=== PATIENT | female | born 1985 | race Caucasian/White ===

== ENCOUNTER 2018-11-05 07:42 | Emergency (ER) | payer BC ==
[2018-11-05 08:01] VITALS: BP 108/77; PULSE 102; TEMP 99.6; BMI 19.8
--- NOTE | 2018-11-05 08:39 | PDOC ---
History of Present Illness - General Chief Complaint: Cold Symptoms Stated Complaint: UPPER RESPIRATORY COMPLAINT Time Seen by Provider: 11/05/18 07:52 History Source: Patient Exam Limitations: No Limitations - History of Present Illness Initial Comments: 11/05/18 08:33 Healthy 33-year-old female with history of mild hypothyroidism presents with 3- 4 days of URI symptoms of cough and chest congestion. Symptoms began with body aches 4 days ago, over the last 2-3 days developed nasal congestion and rhinorrhea with cough and chest congestion productive of green sputum. Patient was seen at urgent care yesterday and prescribed cough suppressants without relief, has been taking Tylenol and Motrin for sore throat. Had chills last night and persisting cough so she presents for evaluation. No recent travel or known sick contacts, nonsmoker, not influenza vaccinated. No history of recurring infections or pneumonia. Past History - Past Medical History Allergies/Adverse Reactions: Allergies Allergy/AdvReac Type Severity Reaction Status Date / Time cephalexin [From Keflex] AdvReac Intermediate Nausea Verified 11/05/18 07:49 Home Medications: Ambulatory Orders Hydrocodone Bit/Homatrop Me-Br [Hydrocodone-Homatropine Syrup] 5 ml PO BID PRN # 30 ml MDD 10mL 11/05/18 Omeprazole 20 mg PO DAILY 11/05/18 Quetiapine Fumarate [Seroquel -] 50 mg PO HS 11/05/18 COPD: No GI Disorders: Yes (REFLUX) Psychiatric Problems: Yes (ANXIETY/SLEEP DISORDER) Thyroid Disease: Yes - Immunization History Immunization Up to Date: Yes - Suicide/Smoking/Psychosocial Hx Smoking Status: No Smoking History: Never smoked Number of Cigarettes Smoked Daily: 0 Information on smoking cessation initiated: No Hx Alcohol Use: No Drug/Substance Use Hx: No Substance Use Type: Alcohol Review of Systems - Review of Systems Constitutional: Yes: Chills. No: Fever, Night Sweats HEENTM: Yes: Nose Congestion, Throat Pain. No: Ear Pain Respiratory: Yes: Cough Cardiac (ROS): No: Syncope ABD/GI: No: Diarrhea, Vomiting : No: Dysuria Integumentary: No: Rash Neurological: No: Headache *Physical Exam - Vital Signs Last Vital Signs Temp Pulse Resp BP Pulse Ox 99.6 F 102 H 18 108/77 100 11/05/18 07:43 11/05/18 07:43 11/05/18 07:43 11/05/18 07:43 11/05/18 07:43 - Physical Exam Comments: 11/05/18 08:36 O2 sat 100% on room air, no tachypnea, temp 99.6 with heart rate 105 (patient took Tylenol just prior to coming to the hospital) GENERAL: The patient is awake, alert, and fully oriented, in no acute distress other than occasional cough and nasal congestion. HEAD: Normal with no signs of trauma. EYES: PERRL, EOMI, sclera anicteric, conjunctiva clear. ENT: oropharynx clear without exudates or erythema or swelling. Moist mucous membranes. NECK: Normal range of motion, supple with sub-centimeter anterior cervical lymphadenopathy, no JVD or masses. LUNGS: Breath sounds equal, clear to auscultation bilaterally. No wheeze/ crackles. HEART: Regular rate and rhythm, normal S1 and S2 without murmur or rub. EXTREMITIES: Normal range of motion, no edema. 2+ distal pulses. NEUROLOGICAL: Cranial nerves II through XII grossly intact. Normal speech, normal gait. PSYCH: Normal mood, normal affect. SKIN: Warm, Dry, no rashes or lesions noted. Moderate Sedation - Procedure Monitoring Vital Signs: Procedure Monitoring Vital Signs Temperature 99.6 F 11/05/18 07:43 Pulse Rate 102 H 11/05/18 07:43 Respiratory Rate 18 11/05/18 07:43 Blood Pressure 108/77 11/05/18 07:43 O2 Sat by Pulse Oximetry (%) 100 11/05/18 07:43 Medical Decision Making - Medical Decision Making 11/05/18 08:38 Healthy 33-year-old female with no underlying lung disease presents with URI symptoms for 3-4 days and subjective fever/chills. Likely viral etiology but rule out pneumonia given progression of sputum and chest complaints, otherwise no respiratory distress. Not a high risk patient for influenza, no wheezing to suggest reactive airway. Low suspicion for strep given no exudate and presence of cough. Check chest x-ray Optimize symptom management with better cough suppressant Reassurance 11/05/18 09:10 cxr without infiltrate. received toradol for throat pain. no suggestion of pna or strep pharyngitis, counseled regarding illness course for viral URI, sxs control, and return precautions. agrees with plan, understands return criteria. *DC/Admit/Observation/Transfer Diagnosis at time of Disposition: Upper respiratory infection Qualifiers: URI type: unspecified URI Qualified Code(s): J06.9 - Acute upper respiratory infection, unspecified - Discharge Dispostion Disposition: HOME Condition at time of disposition: Stable - Prescriptions Prescriptions: Hydrocodone Bit/Homatrop Me-Br [Hydrocodone-Homatropine Syrup] 5 ml PO BID PRN # 30 ml MDD 10mL PRN Reason: Cough - Referrals Referrals: Riri Melton MD [[facility]] - - Patient Instructions Printed Discharge Instructions: DI for Viral Upper Respiratory Infection -- Adult, DI for Viral Pharyngitis Additional Instructions: Activity as tolerated. Stay hydrated. Your symptoms are most likely due to a viral infection that is causing nasal congestion, sore throat, and cough. A chest x-ray shows no evidence of pneumonia , the exam does not suggest strep throat. Tylenol 1000 mg every 8 hours and/or ibuprofen 600 mg every 6-8 hours as needed for pain. Take Mucinex D as a decongestant, take Hycodan as prescribed as a cough suppressant. Continue your medications as previously prescribed by your physician. You should follow up with your primary doctor as soon as possible regarding today's emergency department visit. If you don't have a primary doctor, consider calling Dr. Barry for an appointment. Return to the emergency department for any new or concerning symptoms, particularly persistent fevers or chills, worsening chest pain or difficulty breathing, throat swelling or difficulty swallowing. - Post Discharge Activity Forms/Work/School Notes: Back to Work
[2018-11-05] MEDS ORDERED: KETOROLAC TROMETHAMINE 60 MG/2 ML VIAL IM ONE (09:02)
[2018-11-05] MEDS ORDERED: KETOROLAC TROMETHAMINE 60 MG/2 ML VIAL ONE (09:03)
== END 2018-11-05 09:23 | disposition home or self-care (01) ==
LOC: FER 07:42
PROC: 3E0233Z Introduction of Anti-inflammatory into Muscle, Percutaneous Approach (ICD-10-PCS; principal; 2018-11-05)
DX: J06.9 Acute upper respiratory infection, unspecified (principal); K21.9 Gastro-esophageal reflux disease without esophagitis; F41.9 Anxiety disorder, unspecified
CPT/HCPCS: 71046-TC-FY; 84703; 99282-25

== ENCOUNTER 2019-07-14 19:59 | Emergency (ER) | payer BC ==
[2019-07-14 20:16] VITALS: BP 113/83; PULSE 112; TEMP 98.4; BMI 18.8
[2019-07-14 20:31] LABS: BASO % 0.2 % (0-2.0); EOS % 0.5 % (0-4.5); HEMATOCRIT 40.9 % (32.4-45.2); HEMOGLOBIN 13.5 GM/dl (10.7-15.3); LYMPH % 10.4 % (8-40); MEAN CELL VOLUME 87.9 fl (80-96); MEAN PLT VOLUME 8.9 fl (7.5-11.1); MONO % 3.4 % (3.8-10.2); NEUT % 85.5 % (42.8-82.8); PLATELET COUNT 295 K/MM3 (134-434); RBC 4.65 M/mm3 (3.60-5.2); RDW 12.1 % (11.6-15.6)
[2019-07-14] MEDS ORDERED: SODIUM CHLORIDE 1,000 ML IV STA ×3 (20:33→20:34)
[2019-07-14 20:34] LABS: ALBUMIN 4.4 g/dl (3.4-5.0); CREATININE 0.8 mg/dl (0.55-1.3); POTASSIUM 4.2 mmol/L (3.5-5.1); TOT PROT 7.8 g/dl (6.4-8.2)
[2019-07-14] MEDS ORDERED: ACETAMINOPHEN 1000 MG/100 ML VIAL (NON FORMULARY) IVPB ONE (20:34)
[2019-07-14] MEDS ORDERED: ONDANSETRON 4 MG/2 ML VIAL IVPUSH ONE (20:34)
[2019-07-14] MEDS ORDERED: HYOSCYAMINE SULFATE 0.125 MG *ODT PO ONE (20:34)
[2019-07-14] MEDS ORDERED: HYOSCYAMINE SULFATE 0.125 MG *ODT ONE (20:45)
[2019-07-14] MEDS ORDERED: ACETAMINOPHEN INJECTION 100 ML IVPB ONE (20:45)
--- NOTE | 2019-07-14 20:51 | PDOC ---
History of Present Illness - General Chief Complaint: Vomiting/Diarrhea Stated Complaint: VOMITING, DIARRHEA SINCE 8 AM Time Seen by Provider: 07/14/19 20:02 History Source: Patient Exam Limitations: No Limitations - History of Present Illness Initial Comments: 07/14/19 20:42 Ms. Rodriguez is a 34 yo F who presents to the ER with a complaint of severe lower abdominal pain Pt states, she awoke this morning and noted abdominal pain, nausea, vomiting and diarrhea She has had so many episodes of of vomiting that she has lost count, non bloody , non bilious She had had at least 15 episodes of diarrhea, has now noted blood streaking in the stool She has noted lower abdominal tenderness, rated 9/10, pain is intermittent, no radiation to the back Pain is minimally improved by flexing her hips No fevers or chills No recent travel No ill contacts No raw meat, undercooked fish, no camping Pt denies prior history of diarrhea like this (which was not self limited) PMH: Thyroid problems PSH: Breast Augmentation, Hand surgery Meds: denies ALL: Keflex --> Diarrhea Social: Denies alcohol abuse, drug use, cigarette use FH: no h/o Inflammatory bowel disease ROS: GENERAL/CONSTITUTIONAL: Yes:loss of appetite No: fever, chills, weakness HEAD, EYES, EARS, NOSE AND THROAT: No: change in vision, ear pain, discharge, sore throat, throat swelling. CARDIOVASCULAR: No: chest pain, lightheadedness, palpitations, syncope RESPIRATORY: No: cough, shortness of breath, wheezing, hemoptysis, stridor. GASTROINTESTINAL: Yes: nausea, vomiting, diarrhea, abdominal cramping GENITOURINARY: No: dysuria, hematuria, frequency, urgency, flank pain. MUSCULOSKELETAL: No: back pain, neck pain, joint pain, muscle swelling or pain SKIN: No: lesions, pallor, rash or easy bruising. NEUROLOGIC: No: headache, vertigo, paresthesias, weakness ENDOCRINE: Yes: thyroid d/o No: unexplained weight gain or loss HEMATOLOGIC/LYMPHATIC: No: anemia, easy bleeding, swelling nodes. PE": GENERAL: The patient is in no acute distress, pt appears to be in pain, pt appears dehydrated. HEAD: Normal EYES: PERRLA, EOMI, sclera anicteric, conjunctiva clear. ENT: Ears normal, nares patent, oropharynx clear without exudates. Dry mucous membranes. NECK: Normal range of motion, supple LUNGS: Breath sounds equal, clear to auscultation bilaterally. No wheezes, and no crackles. HEART:Regular rate and rhythm, normal S1 and S2 without murmur, rub or gallop. ABDOMEN: Soft, non distended, lower abdominal tenderness to palpation, (+) voluntary guarding EXTREMITIES: Normal range of motion, no edema. No clubbing or cyanosis. No erythema, or tenderness. NEUROLOGICAL: Cranial nerves II through XII grossly intact. Normal speech. No focal neurological deficits. MUSCULOSKELETAL: Back non-tender to palpation, no CVA tenderness SKIN: Warm, Dry, normal turgor, no rashes or lesions noted. Past History - Past Medical History Allergies/Adverse Reactions: Allergies Allergy/AdvReac Type Severity Reaction Status Date / Time cephalexin [From Keflex] AdvReac Intermediate Nausea Verified 07/14/19 20:12 Home Medications: Ambulatory Orders Quetiapine Fumarate [Seroquel -] 50 mg PO HS 11/05/18 Hyoscyamine Odt [Levsin Odt -] 0.125 mg PO TID PRN #30 tab.rapdis 07/14/19 Loperamide HCl [Imodium -] 2 mg PO BID #14 capsule 07/14/19 Ondansetron HCl [Zofran] 4 mg PO BID PRN #30 tablet 07/14/19 COPD: No GI Disorders: Yes (REFLUX) Psychiatric Problems: Yes (ANXIETY/SLEEP DISORDER) Thyroid Disease: Yes - Immunization History Immunization Up to Date: Yes - Psycho Social/Smoking Cessation Hx Smoking Status: No Smoking History: Never smoked Have you smoked in the past 12 months: No Number of Cigarettes Smoked Daily: 0 Information on smoking cessation initiated: No Hx Alcohol Use: Yes (OCCAS) Drug/Substance Use Hx: No Substance Use Type: Alcohol *Physical Exam - Vital Signs Last Vital Signs Temp Pulse Resp BP Pulse Ox 98.4 F 112 H 18 113/83 100 07/14/19 20:07 07/14/19 20:07 07/14/19 20:07 07/14/19 20:07 07/14/19 20:07 ED Treatment Course - LABORATORY CBC & Chemistry Diagram: 07/14/19 20:15 07/14/19 20:15 - ADDITIONAL ORDERS Additional order review: Laboratory Results 07/14/19 07/14/19 07/14/19 20:20 20:20 20:15 Sodium 132 L Potassium 4.2 Chloride 100 Carbon Dioxide 24 Anion Gap 8 BUN 11.0 Creatinine 0.8 Est GFR (CKD-EPI)AfAm 111.48 Est GFR (CKD-EPI)NonAf 96.19 Random Glucose 102 Calcium 9.0 Total Bilirubin 1.0 AST 18 ALT 12 L Alkaline Phosphatase 53 Total Protein 7.8 Albumin 4.4 Total Amylase 71 Urine Color Yellow Urine Appearance Slightly Urine pH 5.5 Urine Protein Trace Urine Glucose (UA) Negative Urine Ketones Trace Urine Blood 3+ H Urine Nitrite Negative Urine Bilirubin Negative Urine Urobilinogen 0.2 Ur Leukocyte Esterase Negative Urine HCG, Qual Negative 07/14/19 20:15 RBC 4.65 MCV 87.9 MCHC 33.0 RDW 12.1 MPV 8.9 Neutrophils % 85.5 H Lymphocytes % 10.4 Monocytes % 3.4 L Eosinophils % 0.5 Basophils % 0.2 - RADIOLOGY Radiology Studies Ordered: Category Date Time Status ABDOMEN & PELVIS CT WITH CONTR [CT] Stat CT Scan 07/14/19 20:35 Ordered Medical Decision Making - Medical Decision Making 07/14/19 20:51 34 yo F presenting with abdominal pain, nausea, vomiting, diarrhea DD: Appendicitis, colitis, enteritis, gastroenteritis, obstruction, cholecystitis, gastritis, gastric ulcer, diverticulitis Will do: Labs CT IVF Zofran, Hyosciamnine, Tylenol for pain Will re assess 07/14/19 22:40 CT findings: EXAM: ABDOMEN \\T\\ PELVIS CT WITH CONTR HISTORY: 34-Year-Old Female With Lower Abdominal Tenderness. COMPARISON: None. Contrast: 80 mL of intravenous contrast was administered FINDINGS: Mild basilar atelectasis. Bilateral breast implants are incompletely included. The liver gallbladder pancreas spleen adrenal glands and kidneys appear unremarkable. Lack of oral contrast limits this exam. Non-oral contrast evaluation stomach small bowel and appendix appear unremarkable. No appendicitis. Diverticulosis without diverticulitis. Bladder appears unremarkable. Abnormally dilated uterine arcuate and bilateral adnexal veins most likely due to pelvic venous congestion syndrome from left ovarian vein valvular insufficiency. Left ovary follicle. No free air. No free fluid. No abscess. T10 vertebral body 8 mm sclerotic nonspecific lesion most likely represents a bone island. IMPRESSION: Diverticulosis without diverticulitis. Abnormally dilated uterine arcuate and bilateral adnexal veins most likely due to pelvic venous congestion syndrome from left ovarian vein valvular insufficiency. If clinically indicated follow-up outpatient evaluation may be needed. T10 vertebral body 8 mm sclerotic nonspecific lesion most likely represents a bone island. 07/14/19 23:09 NO colitis NO enteritis Pelvic Venous Congestion (I have asked this patient about her pelvis history, she does get severe pelvic pain prior to menses, last was 5 years ago) Pt improved pain Decreased diarrhea Pt asked to follow up with her PMD Dr Elsa Pacheco if she continues to have diarrhea and is feeling better If she is feeling worse, return to the ER Clinical Impression: gastroenteritis, initial presentation Pelvic venous congestion, initial presentation 07/15/19 00:37 07/15/19 00:37 Discharge - Discharge Information Problems reviewed: Yes Clinical Impression/Diagnosis: Gastroenteritis Diarrhea Qualifiers: Diarrhea type: infectious Qualified Code(s): A09 - Infectious gastroenteritis and colitis, unspecified Condition: Stable Disposition: HOME - Admission No - Additional Discharge Information Health Concerns: Gastroenteritis Pelvic Venous Congestion Plan of Treatment: Follow up with [facility] Prescriptions: Hyoscyamine Odt [Levsin Odt -] 0.125 mg PO TID PRN #30 tab.rapdis PRN Reason: abdominal pain Loperamide HCl [Imodium -] 2 mg PO BID #14 capsule Ondansetron HCl [Zofran] 4 mg PO BID PRN #30 tablet PRN Reason: Nausea - Follow up/Referral - Patient Discharge Instructions Patient Printed Discharge Instructions: DI for Viral Gastroenteritis -- Adult, Gastroenteritis Diet Additional Instructions: Return to the emergency department immediately with ANY new, persistent or worsening symptoms. Continue any medications as previously prescribed by your physician You can take Immodium (for diarrhea), Zofran (for vomiting), and Levsin (for abdominal pain) You should follow up with your primary doctor as soon as possible regarding today's emergency department visit. Please also follow up with your [facility] for the findings of Pelvic Venous Congestion Please make sure your doctor reviews the results of your emergency evaluation. Thank you for coming to the [facility] today for your care. It was a pleasure to see you today. Please note that your evaluation is INCOMPLETE until you follow-up with your doctor. - Post Discharge Activity Work/Back to School Note: Back to Work
== END 2019-07-14 23:41 | disposition home or self-care (01) ==
LOC: FER 19:59
PROC: 3E033NZ Introduction of Analgesics, Hypnotics, Sedatives into Peripheral Vein, Percutaneous Approach (ICD-10-PCS; principal; 2019-07-14)
PROC: 3E033GC Introduction of Other Therapeutic Substance into Peripheral Vein, Percutaneous Approach (ICD-10-PCS; 2019-07-14)
PROC: 3E0337Z Introduction of Electrolytic and Water Balance Substance into Peripheral Vein, Percutaneous Approach (ICD-10-PCS; 2019-07-14)
DX: A09 Infectious gastroenteritis and colitis, unspecified (principal); G47.9 Sleep disorder, unspecified; Z88.1 Allergy status to other antibiotic agents; F41.9 Anxiety disorder, unspecified
CPT/HCPCS: 36415; 74177-TC; 80053; 81003; 81015; 82150; 83690; 84703; 85025; 87086; 99282-25; J0131; J7030